=== PATIENT | male | born 1930 | race Caucasian/White ===

== ENCOUNTER → 2016-11-28 | Outpatient (CLI) | payer OTHER, MEDICARE ==
[~2016-11-28] MED LIST: ACCUPRIL40 MG PO; AMBEREN PO; ASA5UEC PO; ASA81BEC PO; ASPIRIN325 PO; BETIMOL 0.0.25 %/11 OT; BISACODYL SUPP10 MG RECTAL; FISH OIL 1,001000 MG PO; GABAPENTIN100 MG PO; GLIPIZIDE ER10 MG PO; GLUCOPHAGE1000 MG PO; GLUCOSE4 GM PO; HYDROCODONE-AP1 EAC6 PO; LIPITOR40 MG PO; LISINOPRIL10 MG PO; LISINOPRIL40 MG PO; LOPRESSOR25 PO; MIRALAX17 GM PO; NITROGLYCERIN0.4 MG SL; NORVASC5 MG PO; PEPCID20 MG PO; PLAVIX 75 MG TA75 MG PO; SEROQUEL 25 MG25 M1 PO; XALATAN2.5 ML OT; ZPAK PO; [UNRECOGNIZED DRUG - OTHER] PO
== END ==
LOC: HYPER 07:04
DX: I87.2 Venous insufficiency (chronic) (peripheral) (principal); I10 Essential (primary) hypertension; I89.0 Lymphedema, not elsewhere classified; I73.9 Peripheral vascular disease, unspecified; E11.21 Type 2 diabetes mellitus with diabetic nephropathy; I48.91 Unspecified atrial fibrillation; I25.10 Atherosclerotic heart disease of native coronary artery without angina pectoris; Z79.84 Long term (current) use of oral hypoglycemic drugs; Z85.46 Personal history of malignant neoplasm of prostate; Z87.891 Personal history of nicotine dependence

== ENCOUNTER → 2017-12-30 | Outpatient (CLI) | payer OTHER, MEDICARE | LOC: MRI 13:51 | DX: M51.26 Other intervertebral disc displacement, lumbar region (principal); M47.897 Other spondylosis, lumbosacral region; N28.1 Cyst of kidney, acquired; Z98.890 Other specified postprocedural states ==

== ENCOUNTER → 2018-05-12 | Outpatient (CLI) | payer OTHER, MEDICARE | LOC: RAD 14:13 | DX: M19.072 Primary osteoarthritis, left ankle and foot (principal); L03.116 Cellulitis of left lower limb ==

== ENCOUNTER → 2019-12-01 | Outpatient (CLI) | payer OTHER, MEDICARE | LOC: SJCVCIMAG 08:49 | DX: I65.23 Occlusion and stenosis of bilateral carotid arteries (principal); I45.10 Unspecified right bundle-branch block; I70.1 Atherosclerosis of renal artery; I73.9 Peripheral vascular disease, unspecified; Z95.1 Presence of aortocoronary bypass graft; I87.2 Venous insufficiency (chronic) (peripheral); I35.0 Nonrheumatic aortic (valve) stenosis ==